=== PATIENT | male | born 1975 | race Caucasian/White ===

== ENCOUNTER → 2024-12-21 | Outpatient (CLI) | payer MEDICAID, SELFPAY ==
--- NOTE | 2024-12-21 15:04 | XR_ITS ---
Examination: Forearm, left, 2 views. Technique: Forearm, AP, lateral 2 views Date and time of exam: December 21, 2024 1514 hours INDICATIONS: Left arm pain one week. FINDINGS: Healed fractures shafts radius and ulna with satisfactory alignment No acute fracture No cortical bone destruction Moderate narrowing radiocarpal joint IMPRESSION: Healed fractures radius ulna No acute fractures Moderate narrowing radiocarpal joint
== END | disposition home or self-care (01) ==
LOC: SDIM 14:49
PROVIDERS: PCP Family Medicine; Referring Provider Physician Assistant; Visit Provider Physician Assistant
DX: M25.80 Other specified joint disorders, unspecified joint (principal)
CPT/HCPCS: 73090